=== PATIENT | male | born 1995 ===

== ENCOUNTER 2017-09-12 13:40 | Emergency (ER) | payer MEDICAID ==
[2017-09-12 13:55] VITALS: BP 139/79; PULSE 78; RESP 16; TEMP 98.5; O2SAT 100
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
--- NOTE | 2017-09-12 15:15 | RAD ---
PROCEDURE: Left Wrist Radiographs. HISTORY: wrist pain COMPARISON: None. FINDINGS: BONES: Normal. No fracture. JOINTS: Normal. No dislocation. SOFT TISSUES: Normal. OTHER FINDINGS: None. IMPRESSION: Normal left wrist radiographs.
--- NOTE | 2017-09-12 15:17 | RAD ---
PROCEDURE: Left scapula HISTORY: injury COMPARISON: TECHNIQUE: Two views FINDINGS: No evidence of fracture or dislocation IMPRESSION: Negative study
== END 2017-09-12 15:22 | disposition home or self-care (01) ==
LOC: H.ER 13:40
DX: S49.92XA Unspecified injury of left shoulder and upper arm, initial encounter (principal); M25.532 Pain in left wrist; V14.4XXA Pedal cycle driver injured in collision with heavy transport vehicle or bus in traffic accident, initial encounter; Y93.55 Activity, bike riding

== ENCOUNTER 2018-01-28 19:52 | Emergency (ER) | payer MEDICAID ==
[2018-01-28 20:11] VITALS: BP 116/68; PULSE 83; RESP 18; TEMP 98.4; O2SAT 99
[2018-01-28] MEDS ORDERED: Bacitracin 500 Units/gm Oint Foilpak UD TOP STA (20:16)
[2018-01-28] MEDS ORDERED: Tdap Vaccine 0.5 ml Vial (10-64 yrs) IM ONE ×2 (20:24→20:35)
--- NOTE | 2018-01-28 21:04 | ED PDOC ---
Lower Extremity Pain/Injury Time Seen by Provider: 01/28/18 20:13 Chief Complaint (Nursing): Lower Extremity Problem/Injury Chief Complaint (Provider): Left leg injury History Per: Patient History/Exam Limitations: no limitations Onset/Duration Of Symptoms: Hrs Current Symptoms Are (Timing): Still Present Additional Complaint(s): 22 y/o male presents to the emergency department for evaluation of left leg injury sustained earlier today. Patient reports he fell off his skateboard, injuring the left thigh and left knee. Denies any head injury, chest pain, numbness, or tingling. PMD: none Past Medical History Reviewed: Historical Data, Nursing Documentation, Vital Signs Vital Signs: Last Vital Signs Temp 98.4 F 01/28/18 20:09 Pulse 83 01/28/18 20:09 Resp 18 01/28/18 20:09 BP 116/68 01/28/18 20:09 Pulse Ox 99 01/28/18 20:09 - Medical History PMH: Anxiety, Depression Denies: Asthma, Diabetes - Surgical History Surgical History: No Surg Hx - Family History Family History: States: Unknown Family Hx - Social History Alcohol: None Drugs: Denies - Home Medications Home Medications: Ambulatory Orders Medication Instructions Recorded Ibuprofen [Motrin] 400 mg PO Q6 #30 tab 09/12/17 Naproxen [Naprosyn] 500 mg PO BID PRN #10 tab 01/28/18 - Allergies Allergies/Adverse Reactions: Allergies Allergy/AdvReac Type Severity Reaction Status Date / Time blueberry Allergy ANAPHYLAXIS Verified 04/05/16 09:15 Review of Systems ROS Statement: Except As Marked, All Systems Reviewed And Found Negative Cardiovascular: Negative for: Chest Pain Musculoskeletal: Positive for: Other (left thigh and knee pain) Neurological: Negative for: Numbness, Other (tingling) Physical Exam - Reviewed Nursing Documentation Reviewed: Yes Vital Signs Reviewed: Yes - Physical Exam Appears: Positive for: No Acute Distress Head Exam: Positive for: ATRAUMATIC, NORMAL INSPECTION, NORMOCEPHALIC Skin: Positive for: Normal Color, Warm, Dry Eye Exam: Positive for: Normal appearance Pulses-Dorsalis Pedis (L): 2+ Pulses-Dorsalis Pedis (R): 2+ Extremity: Positive for: Normal ROM (with full ROM actively of left lower extremity, able to bear weight), Other (superficial abrasions to left lateral thigh, and left anterior knee, with mild tenderness to both). Negative for: Swelling (or ecchymosis) - ECG O2 Sat by Pulse Oximetry: 99 (RA) Pulse Ox Interpretation: Normal - Radiology X-Ray: Interpreted by Me (Knee, femur x-ray) X-Ray Interpretation: No Acute Disease Medical Decision Making Medical Decision Making: Initial Impression: Left leg injury s/p fall Time: 20:16 Initial Plan: --X-Ray left knee --X-Ray left femur --Tdap booster given --Bacitracin applied Patient informed of x-ray results. Provided with crutches and knee immobilizer by emergency veterinary technician. Patient is stable for discharge home. Scribe Attestation: Documented by Carmen Rubalcava, acting as a scribe for Alfa Beard PA-C. Provider Scribe Attestation: All medical record entries made by the Scribe were at my direction and personally dictated by me. I have reviewed the chart and agree that the record accurately reflects my personal performance of the history, physical exam, medical decision making, and the department course for this patient. I have also personally directed, reviewed, and agree with the discharge instructions and disposition. Disposition - Clinical Impression Clinical Impression: Knee injury, Thigh contusion - Patient ED Disposition Is Patient to be Admitted: No Counseled Patient/Family Regarding: Studies Performed, Diagnosis, Need For Followup - Disposition Referrals: [facility] [Outside] [facility] [Outside] Stephen Perez MD [Staff Provider] - Disposition: Routine/Home Disposition Time: 20:00 Condition: STABLE Additional Instructions: Follow up with your doctor or Dr. Andrés Shaffer (orthopedist) for further evaluation. Return to ED immediately if symptoms worsen. Prescriptions: Naproxen [Naprosyn] 500 mg PO BID PRN #10 tab PRN Reason: Pain Instructions: Contusion (DC) Forms: [facility] (Khmer), [facility] ED School/Work Excuse Print Language: MALAY
--- NOTE | 2018-01-29 08:01 | RAD ---
PROCEDURE: Left Femur Radiograph HISTORY: trauma COMPARISON: None available. TECHNIQUE: Two frontal views of left femur been submitted, as requested, for interpretation of trauma. FINDINGS: No definite fracture or destructive bony lesion appreciated. Local soft tissues appear diffusely unremarkable. IMPRESSION: Unremarkable appearing left femur.
--- NOTE | 2018-01-29 08:02 | RAD ---
PROCEDURE: Left Knee Radiographs. HISTORY: Pain. COMPARISON: None. FINDINGS: BONES: No acute fracture or destructive bony lesion identified. JOINTS: Normal. No osteoarthritis. JOINT EFFUSION: None. OTHER FINDINGS: None. IMPRESSION: Unremarkable radiographs of the left knee.
== END 2018-01-28 22:11 | disposition home or self-care (01) ==
LOC: H.ER 19:52
DX: S80.02XA Contusion of left knee, initial encounter (principal); S89.92XA Unspecified injury of left lower leg, initial encounter; W19.XXXA Unspecified fall, initial encounter; Y92.89 Other specified places as the place of occurrence of the external cause; F32.9 Major depressive disorder, single episode, unspecified; F41.9 Anxiety disorder, unspecified

== ENCOUNTER 2018-10-29 07:53 | Emergency (ER) | payer OTHER ==
[2018-10-29 07:58] VITALS: PULSE 71; TEMP 98.2
--- NOTE | 2018-10-29 08:13 | ED PDOC ---
HPI: General Adult Chief Complaint (Provider): Neck pain Additional History Per: Patient Additional Complaint(s): 22 y/o M with no significant PMH comes to the ER after woken up by right neck pain. Neck pain is located mainly on right neck, unable to move his neck due to pain, 9/10 pain, non-radiating. Patient denies any current headache, fever, dizziness, blurred vision, trauma or sick contact. Patient reports mild headache yesterday and got better on ibuprofen. PMH: Denies PSH: Denies Allg: NKDA Meds: None FH: + DM SH: Social alcohol use only ROS: As per HPI <Abi Delacruz - Last Filed: 10/29/18 10:16> <Andrew Terrazas - Last Filed: 10/29/18 11:49> Time Seen by Provider: 10/29/18 08:05 Supervising Attending Note - Supervising Attending Note The Documented history was done by the: Physician Filler Sifter Helper, Attending Physician The documented physical exam was done by the: Physician Filler Sifter Helper, Attending Physician The documented procedures were done by the: Physician Filler Sifter Helper, Attending Physician - Attestation: I have personally seen and examined this patient.: Yes I have fully participated in the care of the patient.: Yes I have reviewed all pertinent clinical information, including history, physical exam and plan: Yes <Andrew Terrazas - Last Filed: 10/29/18 11:49> Past Medical History Vital Signs: Last Vital Signs Temp 98.2 F 10/29/18 07:57 Pulse 71 10/29/18 07:57 Resp 15 10/29/18 07:57 BP 130/78 10/29/18 07:57 Pulse Ox 99 10/29/18 07:57 - Medical History PMH: Anxiety, Depression Denies: Asthma, Diabetes - Family History Family History: States: Unknown Family Hx <Abi Delacruz - Last Filed: 10/29/18 10:16> Vital Signs: Last Vital Signs Temp 98.2 F 10/29/18 10:29 Pulse 71 10/29/18 10:29 Resp 18 10/29/18 10:29 BP 134/60 10/29/18 10:29 Pulse Ox 98 10/29/18 10:29 <Andrew Terrazas - Last Filed: 10/29/18 11:49> - Home Medications Home Medications: Ambulatory Orders Medication Instructions Recorded Ibuprofen [Motrin] 400 mg PO Q6 #30 tab 09/12/17 RX: Naproxen [Naprosyn] 500 mg PO BID PRN #10 tab 01/28/18 Cyclobenzaprine [Cyclobenzaprine 10 mg PO Q8H PRN #10 tab 10/29/18 HCl] RX: Ibuprofen 600 mg PO Q6H PRN #20 tablet 10/29/18 - Allergies Allergies/Adverse Reactions: Allergies Allergy/AdvReac Type Severity Reaction Status Date / Time blueberry Allergy ANAPHYLAXIS Verified 10/29/18 08:12 Review of Systems Constitutional: Negative for: Fever, Sweats Eyes: Negative for: Pain ENT: Positive for: Other (Rt neck pain ) Cardiovascular: Negative for: Chest Pain, Palpitations Respiratory: Negative for: Cough, Shortness of Breath Gastrointestinal: Negative for: Nausea, Vomiting Genitourinary Male: Negative for: Dysuria Musculoskeletal: Positive for: Neck Pain. Negative for: Shoulder Pain, Arm Pain, Back Pain, Hand Pain, Leg Pain Neurological: Negative for: Weakness, Numbness Psych: Negative for: Anxiety <Abi Delacruz - Last Filed: 10/29/18 10:16> Physical Exam - Physical Exam Appears: Positive for: Uncomfortable Head Exam: Positive for: NORMAL INSPECTION Skin: Positive for: Normal Color Eye Exam: Positive for: Normal appearance ENT: Positive for: Normal ENT Inspection Neck: Positive for: Pain On Movement Of Neck (no tenderness, no erythema/swelling or skin chnages ) Cardiovascular/Chest: Positive for: Regular Rate, Rhythm. Negative for: Edema, JVD Respiratory: Positive for: Normal Breath Sounds. Negative for: Decreased Breath Sounds, Accessory Muscle Use Gastrointestinal/Abdominal: Positive for: Normal Exam, Soft. Negative for: Tenderness Back: Positive for: Normal Inspection. Negative for: L CVA Tenderness, R CVA Tenderness Extremity: Positive for: Normal ROM Neurologic/Psych: Positive for: Alert, Oriented <Abi Delacruz - Last Filed: 10/29/18 10:16> - ECG O2 Sat by Pulse Oximetry: 99 - Progress ED Course And Treament: A/P: 22 y/o M with no significant PMH comes to the ER after woken up by right neck pain. - Ibuprofen 600mg - Flexeril 10mg once - Reevaluation Case discussed with Dr. Terrazas - Patient was reevaluated, improved somewhat as per patient - Agrees with discharge plan: C/w ibuprofen/ Flexeril and warm compressions Re-evaluation Time: 10:03 Condition: Improving,but remains with symptoms <Abi Delacruz - Last Filed: 10/29/18 10:16> Medical Decision Making Medical Decision Making: musculoskeletal neck pain <Abi Delacruz - Last Filed: 10/29/18 10:16> Disposition - Patient ED Disposition Is Patient to be Admitted: No - Disposition Disposition: Routine/Home Disposition Time: 10:05 <Abi Delacruz - Last Filed: 10/29/18 10:16> <Andrew Terrazas - Last Filed: 10/29/18 11:49> - Clinical Impression Clinical Impression: Neck pain - Disposition Referrals: [facility] [Provider Group] Condition: GOOD Additional Instructions: ER precautions discussed (Headache, fever, vomiting or worsening pain) Prescriptions: Cyclobenzaprine [Cyclobenzaprine HCl] 10 mg PO Q8H PRN #10 tab PRN Reason: Pain, Severe (8-10) RX: Ibuprofen 600 mg PO Q6H PRN #20 tablet PRN Reason: Pain, Severe (8-10) Instructions: Neck Pain Forms: [facility] [facility] (Arabic)
[2018-10-29 10:30] VITALS: BP 134/60; RESP 18; O2SAT 98
== END 2018-10-29 10:29 | disposition home or self-care (01) ==
LOC: H.ER 07:53
DX: M54.2 Cervicalgia (principal)

== ENCOUNTER 2018-11-16 12:46 | Emergency (ER) | payer OTHER ==
[2018-11-16 13:04] VITALS: BP 157/84; PULSE 90; RESP 18; TEMP 98.8; O2SAT 99
--- NOTE | 2018-11-16 14:04 | ED PDOC ---
HPI: General Adult Time Seen by Provider: 11/16/18 13:30 Chief Complaint (Nursing): Abnormal Skin Integrity Chief Complaint (Provider): RASH History Per: Patient History/Exam Limitations: no limitations Onset/Duration Of Symptoms: Days (x2 weeks) Current Symptoms Are (Timing): Still Present Additional Complaint(s): Herrera Prajapati is a 22 year old male, with no significant past medical history, who presents to the emergency department for evaluation of a persistent rash ongoing for x2 weeks after using bodywash associated with an intermittent itchiness. Patient reports rash started with a patch on the right lower back. He used an ointment without any improvement. He denies any fever, chills or new foods. No further medical complaints. PMD: Abran Shields Past Medical History Reviewed: Historical Data, Nursing Documentation, Vital Signs Vital Signs: Last Vital Signs Temp 98.8 F 11/16/18 13:02 Pulse 90 11/16/18 13:02 Resp 18 11/16/18 13:02 BP 157/84 H 11/16/18 13:02 Pulse Ox 99 11/16/18 13:02 - Medical History PMH: Anxiety, Depression Denies: Asthma, Diabetes - Surgical History Surgical History: No Surg Hx - Family History Family History: States: Unknown Family Hx - Home Medications Home Medications: Ambulatory Orders Medication Instructions Recorded Ibuprofen [Motrin] 400 mg PO Q6 #30 tab 09/12/17 Naproxen [Naprosyn] 500 mg PO BID PRN #10 tab 01/28/18 Cyclobenzaprine [Cyclobenzaprine 10 mg PO Q8H PRN #10 tab 10/29/18 HCl] Ibuprofen 600 mg PO Q6H PRN #20 tablet 10/29/18 DiphenhydrAMINE [Benadryl] 1 - 2 tab PO Q6 PRN #24 cap 11/16/18 - Allergies Allergies/Adverse Reactions: Allergies Allergy/AdvReac Type Severity Reaction Status Date / Time No Known Allergies Allergy Verified 11/16/18 13:02 Review of Systems ROS Statement: Except As Marked, All Systems Reviewed And Found Negative Constitutional: Negative for: Fever, Chills Skin: Positive for: Rash (itchy) Physical Exam - Reviewed Nursing Documentation Reviewed: Yes Vital Signs Reviewed: Yes - Physical Exam Appears: Positive for: No Acute Distress Head Exam: Positive for: ATRAUMATIC, NORMAL INSPECTION, NORMOCEPHALIC Skin: Positive for: Normal Color, Warm, Dry, Rash (generalized rash noted on trunk, back and forearms. Large patch noted on right lower back, approximately 4cm in diameter. ) Eye Exam: Positive for: Normal appearance, EOMI, PERRL ENT: Positive for: Normal ENT Inspection, Pharynx Is (clear) Neck: Positive for: Normal, Painless ROM, Supple Cardiovascular/Chest: Positive for: Regular Rate, Rhythm. Negative for: Murmur Respiratory: Positive for: Normal Breath Sounds. Negative for: Respiratory Distress Gastrointestinal/Abdominal: Positive for: Normal Exam, Soft. Negative for: Tenderness Back: Positive for: Normal Inspection Extremity: Positive for: Normal ROM (upper and lower extremities). Negative for: Deformity, Swelling Neurologic/Psych: Positive for: Alert, Oriented. Negative for: Motor/Sensory Deficits - ECG O2 Sat by Pulse Oximetry: 99 (RA) Pulse Ox Interpretation: Normal Medical Decision Making Medical Decision Making: Time: 13:30 Initial Impression: Rash Initial Plan: 13:50 Patient was seen by Dr. Winters. Diagnosis of pityriasis rosea 14:03 Upon provider reevaluation patient is medically stable, and requires no further treatment in the ED at this time. Patient will be discharged home with Rx for Benadryl. Counseling was provided and all questions were answered regarding diagnosis and need for follow up with manager wellness. There is agreement to discharge plan. Return if symptoms persist or worsen. Scribe Attestation: Documented by Pavel Zapata, acting as a scribe for Nabil Delacruz PA-C. Provider Scribe Attestation: All medical record entries made by the Scribe were at my direction and personally dictated by me. I have reviewed the chart and agree that the record accurately reflects my personal performance of the history, physical exam, medical decision making, and the department course for this patient. I have also personally directed, reviewed, and agree with the discharge instructions and disposition. Disposition - Clinical Impression Clinical Impression: Pityriasis rosea - Patient ED Disposition Is Patient to be Admitted: No - Disposition Referrals: Brad Wadsworth MD [Staff Provider] - Disposition: Routine/Home Disposition Time: 14:03 Condition: FAIR Additional Instructions: DR MARIJA KEARNEY [phone] Prescriptions: DiphenhydrAMINE [Benadryl] 1 - 2 tab PO Q6 PRN #24 cap PRN Reason: Itching / Pruritus Instructions: Pityriasis Rosea Forms: [facility] ED School/Work Excuse
== END 2018-11-16 14:37 | disposition home or self-care (01) ==
LOC: H.ER 12:46
DX: L42 Pityriasis rosea (principal)